=== PATIENT | female | born 1960 | race Two or more races ===

== ENCOUNTER 2018-06-30 14:57 | Emergency (ER) | payer MEDICAID ==
[~2018-06-30] VITALS: Ht 154.9 cm; Wt 64.9 kg
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
--- NOTE | 2018-06-30 15:50 | NUR ---
DR SOLIS AT BEDSIDE
[2018-06-30] MEDS ORDERED: HYDROCODONE/APAP 5/325MG 1 EACH TABLET PO ONE (16:00)
[2018-06-30] MEDS ORDERED: DEXAMETHASONE SOD PHOSPHATE 10 MG/ML VIAL IM ONE (16:00)
[2018-06-30] MEDS ORDERED: DEXAMETHASONE SOD PHOSPHATE 10 MG/ML VIAL ONE (16:08)
[2018-06-30] MEDS ORDERED: HYDROCODONE/APAP 5/325MG 1 EACH TABLET ONE (16:08)
--- NOTE | 2018-06-30 18:14 | NUR ---
Patient discharged to home in stable condition. Written and verbal after care instructions given. Patient verbalizes understanding of instruction.
[2018-06-30 18:15] VITALS: BP 132/80
== END 2018-06-30 18:15 | disposition home or self-care (01) ==
LOC: ER 15:02
DX: S46.812A Strain of other muscles, fascia and tendons at shoulder and upper arm level, left arm, initial encounter (principal); S16.1XXA Strain of muscle, fascia and tendon at neck level, initial encounter; S39.012A Strain of muscle, fascia and tendon of lower back, initial encounter; G89.29 Other chronic pain; Z88.6 Allergy status to analgesic agent; V49.59XA Passenger injured in collision with other motor vehicles in traffic accident, initial encounter; Y93.89 Activity, other specified; Y92.410 Unspecified street and highway as the place of occurrence of the external cause; Y99.8 Other external cause status
CPT/HCPCS: 71045-TC; 72050-TC; 72110-TC; J1100